=== PATIENT | male | born 1995 | race Caucasian/White ===

== ENCOUNTER 2019-03-29 17:34 | Emergency (ER) | payer SELFPAY ==
[~2019-03-29] VITALS: Ht 170.2 cm; Wt 66.6 kg
[2019-03-29 17:37] VITALS: BP 112/75
[2019-03-29] MEDS ORDERED: DEXAMETHASONE 4 MG TABLET ONE (18:19)
[2019-03-29] MEDS ORDERED: DEXAMETHASONE 4 MG TABLET PO ONE (18:30)
== END 2019-03-29 18:48 | disposition home or self-care (01) ==
LOC: ED 17:51
DX: J02.8 Acute pharyngitis due to other specified organisms (principal); B97.89 Other viral agents as the cause of diseases classified elsewhere; F17.200 Nicotine dependence, unspecified, uncomplicated
CPT/HCPCS: 87081; 87147; 87880; 99283